=== PATIENT | female | born 2005 | race Caucasian/White ===

== ENCOUNTER 2024-04-13 22:08 | Emergency (ER) | payer MEDICAID, SELFPAY ==
[2024-04-13 22:15] VITALS: BP 131/86; PULSE 139; RESP 20; TEMP 36.8; O2SAT 99
[2024-04-13 22:42] VITALS: PULSE 130; RESP 18; O2SAT 99; BMI 33.6
[2024-04-13 22:50] VITALS: BP 138/87; PULSE 145; RESP 16; O2SAT 100
--- NOTE | 2024-04-13 23:57 | EDNOTE_ITS ---
ED Seizures RME/HPI General Chief Complaint: Seizure Stated Complaint: SEIZURE Arrival date/time: 04/13/24 22:08 Limitations: no limitations RME / HPI RME / HPI Narrative: Dr. Bird's Main ED Evaluation: 19yo female CAROL from home presents to the ED for a possible seizure. Patient states she ate marijuana edibles at 2230 and began feeling shortness of breath. She states she was anxious and fell to the ground. She denies any history of seizures. She denies any alcohol use. Denies tongue biting, incontinence or any other associated symptoms. No known allergies. Related Data Home Medications ?Medication ?Instructions ?Recorded ?Confirmed No Known Home Medications 06/06/21 06/06/21 Allergies Allergy/AdvReac Type Severity Reaction Status Date / Time No Known Allergies Allergy Unverified 06/06/21 20:49 Review of Systems Review of Systems Systems Reviewed: All systems reviewed, normal except as documented Past Medical History Past Medical History CARDIAC: Negative Congestive Heart Failure RESPIRATORY: Positive Asthma; Negative Chronic Obstructive Pulmonary Disease (COPD) GENITOURINARY: Negative Renal Disease ENDOCRINE: Negative Diabetes Mellitus Type 1 or Diabetes Mellitus Type 2 Social History SMOKING STATUS: Current some day smoker SUBSTANCE USE: does not use ED Exam General Limitations: Present no limitations General appearance: Present alert and in no apparent distress Head Head exam: Present atraumatic Eye Eye exam: Present normal appearance, PERRL and EOMI ENT ENT exam: Present normal exam, normal oropharynx and mucous membranes moist Neck Neck exam: Present normal inspection, full ROM and trachea midline Chest Chest inspection: Present normal inspection and symmetric chest wall rise Respiratory Respiratory exam: Present normal lung sounds bilaterally Cardiovascular Cardiovascular exam: Present regular rate, normal rhythm and normal heart sounds Abdominal Exam Abdominal exam: Present soft and normal bowel sounds Extremities Exam Extremities exam: Present normal inspection and full ROM Back Exam Back exam: Present normal inspection and full ROM Neurological Exam Neurological exam: Present alert, oriented X3 and CN II-XII intact Psychiatric Psychiatric exam: Present normal affect and normal mood Skin Skin exam: Present warm, dry, intact and normal color Course Course Course Narrative: 0416: Patient sat up in the bed and does not complain of any dizziness, lightheadedness or nausea. Patient is stable to be discharged home. Quality Measures none Orders Category Date Time Status CT head/brain wo con Stat Exams 04/14/24 02:11 Completed CBC Stat Lab 04/14/24 02:27 Completed CMP [Comprehensive Metabolic Panel] Stat Lab 04/14/24 02:27 Completed Sodium Chloride 0.9% 1000 ml [Ns] 1,000 ml Med 04/14/24 02:20 Discontinued IV 999 mls/hr Sodium Chloride 0.9% 250 ml [Ns] 1,000 ml Med 04/14/24 02:20 Discontinued IV 999 mls/hr Sodium Chloride 0.9% 250 ml [Ns] 250 ml Med 04/14/24 02:12 Discontinued IV 999 mls/hr Vital Signs Vital signs: Vital Signs Temperature 98.3 F 04/13/24 22:15 Pulse Rate 139 H 04/13/24 22:15 Respiratory Rate 20 04/13/24 22:15 Blood Pressure 131/86 H 04/13/24 22:15 Pulse Oximetry (%) 99 04/13/24 22:15 Oxygen Delivery Method Nasal Cannula 04/13/24 22:15 Oxygen Flow Rate 3 04/13/24 22:15 Seizure Patient data External records reviewed:: [facility] previous records (Per chart review, patient has no relevant previous ED visits.) Clinical information provided by:: patient Social determinants that could affect healthcare access:: substance use (ate marijuana edibles) Patient has the following chronic illnesses:: asthma How is presenting disease/condition affected by chronic disease/condition?: no chronic disease Evaluation data The following diagnostics were reviewed and interpreted by me:: lab results and radiology exam(s) Lab and/or radiology exams considered but not ordered:: none Interpretation Summary: WBC count is elevated at 14.3, CMP is normal, according to my interpretation. ---- Telerad Preliminary Report Draft Patient: ROSITA DE LEON [facility] Record#: [id number] Birthdate: 2005 Age/Sex: 19 / F Location: [facility] Attending Dr: Ordering Physician: Date of Service: Procedure(s): Accession Number(s): cc: ~ CT scan of the head without intravenous contrast (axial sections with sagittal and coronal reformats). April 14, 2024 0307 hours Clinical History: 19 yo dizzy after edible, poosible seizure Comparison: No prior study is available for comparison. Findings: No evidence of intracranial hemorrhage, mass effect or midline shift. The ventricles and CSF spaces are unremarkable. The calvarium is unremarkable. The mastoid air cells and the visualized paranasal sinuses are clear. Impression: No evidence of intracranial hemorrhage, mass effect or midline shift. Report Electronically Signed By: Kiara Cazares 04/14/2024 3:41:13 AM [EST] Medications / Prescriptions Medications or Prescriptions considered but not ordered:: none Medication administrations:: Medication Administration History Discontinued Medications Sodium Chloride (Ns) 250 mls @ 999 mls/hr IV .Q16M ONE Stop: 04/14/24 02:27 Last Admin: 04/14/24 02:20 Dose: Not Given Documented By: SF Non-Admin Reason: Discontinued Sodium Chloride (Ns) 1,000 mls @ 999 mls/hr IV .Q1H1M ONE Stop: 04/14/24 03:12 Last Admin: 04/14/24 03:10 Dose: Not Given Documented By: SF Non-Admin Reason: Discontinued Sodium Chloride (Ns) 1,000 mls @ 999 mls/hr IV .Q1H1M ONE Stop: 04/14/24 02:21 Last Infusion: 04/14/24 03:40 Dose: Infused Documented By: Admin: 04/14/24 02:25 Dose: 999 mls/hr Documented By: SF see above, if any Consultations Consultation(s) initiated? (list below): No Diagnosis Seizure Differential Diagnosis: other (drug use, dehydration, electrolyte abnormlity) Most likely diagnosis given after review of the tests above:: see above Admission Indicated Admission indicated?: not indicated Admission Request Was there a request for admission?: No Disposition Plan Disposition Plan: Discharge Discharge Attestation Discharge Attestation: The patient and all family members were given an opportunity to ask questions and understood the discharge instructions. Discharge instructions specifically effects, indications for sooner follow up or return to the emergency department, and the expected course of current diagnosis. Patient condition: Stable Discharge Plan Plan Patient Disposition: HOME (Self Care) Patient condition on transfer: Stable Prescriptions/Referrals Prescriptions/Med Rec: No Action No Known Home Medications Referrals: Percy Moyer MD [Primary Care Provider] - In 1 week Problem List Clinical Impression: Marijuana use Patient/Caregiver Discharge Instructions Additional Instructions: Please avoid eating edibles or any other drug use. Stay hydrated with Pedialyte and Gatorade. Return to emergency department if worsening symptoms, you feel like you are having a seizure, or any other concerns. Print Language: Filipino Stand Alone Forms: Jenny Award Info., Patient Portal Info Letter
[2024-04-14 01:49] VITALS: BP 107/68; PULSE 122; RESP 13; TEMP 36.7; O2SAT 97
--- NOTE | 2024-04-14 02:11 | XR_ITS ---
Examination: CT brain head without contrast. 2-D sagittal coronal reconstructions Date and time of exam:April 14, 2024 at 0307 hrs. Indications: Dizziness after seizure today CTDI: vol (mGy):47.7 DLP: (mGycm):929 Technique: Multiple CT axial sections of the brain have been obtained, 5 mm slice thickness. Contrast has not been administered. 2-D sagittal, coronal reconstructions have been obtained Low dose protocols were performed. One or more of the following dose reduction techniques were used; automated exposure control, adjustment of the mA and/or KV according to patient size, use of iterative reconstruction technique. Findings: No significant ventricular enlargement. Intra-axial or extra-axial hemorrhage density is not seen. No mass effect or midline shift Basal cisterns are not remarkable. Fourth ventricle is midline. Cranial vault intact. Impression: Negative for acute hemorrhage, mass effect or midline shift Consider brain MRI follow-up, pre and postcontrast, seizure protocol
[2024-04-14] MEDS: SODIUM CHLORIDE 0.9% 1000 ML 1,000 ML 999 ML IV (02:25)
[2024-04-14 02:55] LABS: Basophils # (Auto) 0.1 Thou/mm3 (0.0-0.2); Basophils % (Auto) 0 % (0-2.5); Eosinophils # (Auto) 0.1 Thou/mm3 (0.0-0.5); Eosinophils % (Auto) 0 % (0-10); Hematocrit 37.8 % (36.0-46.0); Hemoglobin 12.8 g/dL (12.0-16.0); Immature Granulocytes % (Auto) 0 % (0-0); Immature Granulocytes Auto 0.03 Thou/mm3 (0.00-0.00); Lymphocytes % (Auto) 21 % (10-50); Mean Corpuscular HGB Conc 33.9 g/dl (31.0-37.0); Mean Corpuscular Hemoglobin 29.9 pg (25.0-35.0); Mean Corpuscular Volume 88 fL (80-100); Monocytes # (Auto) 0.7 Thou/mm3 (0.0-0.8); Monocytes % (Auto) 5 % (0-12); Neutrophils # (Auto) 10.5 Thou/mm3 (1.8-7.7); Neutrophils % (Auto) 73 % (37-80); Nucleated Red Blood Cell % 0 /100 WBC (0); Platelet Count 289 Thou/mm3 (140-440); RDW Standard Deviation 40.6 fL (36.4-46.3); Red Blood Count 4.28 Miln/mm3 (4.00-5.20); White Blood Count 14.3 Thou/mm3 (3.6-11.0)
[2024-04-14 03:16] LABS: Alanine Aminotransferase 13 U/L (10-49); Albumin, Serum 4.6 gm/dL (3.5-5.0); Albumin/Globulin Ratio 1.8 (1.2-2.2); Alkaline Phosphatase 72 U/L (46-116); Anion Gap 8 (7-16); Aspartate Amino Transferase 14 U/L (0-34); BUN/Creatinine Ratio 18 Ratio (12-20); Bilirubin,Total 0.2 mg/dL (0.3-1.2); Blood Urea Nitrogen 14 mg/dL (9-23); Calcium 9.1 mg/dL (8.3-10.6); Calcium (Corrected) 9.1 mg/dL (8.5-10.1); Carbon Dioxide 25.6 mMol/L (20.0-31.0); Chloride 107 mMol/L (98-107); Creatinine (Component) 0.8 mg/dL (0.6-1.3); Estimated Creatinine Clearance 115.7 mL/min (>60); Globulin 2.6 gm/dL (2.3-3.5); Glucose 110 mg/dL (74-106); Osmolality,Calculated 282 (275-295); Potassium 4.2 mMol/L (3.4-5.1); Sodium 141 mMol/L (136-145); Total Protein 7.2 gm/dL (5.7-8.2); eGFR > 60 See Note
--- NOTE | 2024-04-14 03:41 | PRELIM_ITS ---
CT scan of the head without intravenous contrast (axial sections with sagittal and coronal reformats) . April 14, 2024 0307 hoursClinical History: 19 yo dizzy after edible, poosible seizureComparison: No prior study is available for comparison. Findings:No evidence of intracranial hemorrhage, mass eff ect or midline shift. The ventricles and CSF spaces are unremarkable. The calvarium is unremarkable. The mastoid air cells and the visualized paranasal sinuses are clear.Impression:No evidence of intrac ranial hemorrhage, mass effect or midline shift. Report Electronically Signed By: Kiara Cazares 5 3:41:13 AM [EST]
[2024-04-14 03:47] VITALS: BP 109/55; PULSE 80; RESP 15; O2SAT 93
[2024-04-14 04:41] VITALS: BP 110/62; PULSE 86; RESP 16; TEMP 36.7; O2SAT 95
== END 2024-04-14 04:42 | disposition home or self-care (01) ==
PROVIDERS: Emergency Provider Emergency Medicine; PCP Family Medicine
DX: F12.90 Cannabis use, unspecified, uncomplicated (principal); R56.9 Unspecified convulsions; R42 Dizziness and giddiness
CPT/HCPCS: 36415; 70450; 80053; 85025; 96360; 99284; J7030; J7050